=== PATIENT | male | born 1980 | race Caucasian/White ===

== ENCOUNTER 2016-06-15 19:39 | Inpatient (IN) | payer OTHER ==
[~2016-06-15] VITALS: Ht 167.6 cm; Wt 153.7 kg
[2016-06-15 20:50] LABS: HEMATOCRIT 54.7 % (38.0-50.0); MCH 28.2 PG (29.0-34.0); MCHC 30.7 G/DL (30.0-36.0); MCV 91.9 FL (86-99); MEAN PLAT.VOLUME 9.5 uM^3 (9.0-12.4); PLATELET COUNT 288 K/uL (156-360); RBC DIS.WIDTH-CV 16.8 % (11.8-14.6); RBC DIS.WIDTH-SD 53.3 % (39-53); RED BLOOD COUNT 5.95 M/uL (4.00-5.50); WHITE BLOOD COUNT 13.2 K/uL (4.1-10.2)
[2016-06-15 20:58] LABS: CHLORIDE 98 mEq/L (99-109); POTASSIUM 4.4 mEq/L (3.7-5.4); SODIUM 138 mEq/L (136-147)
[2016-06-15 20:59] LABS: GLUCOSE 93 mg/dL (70-99)
[2016-06-15 21:01] LABS: ANION GAP 7 MEQ/L (2-14)
[2016-06-15 21:03] LABS: GFR ESTIMATE (CALCULATED) > 59 mL/min/
[2016-06-15 21:04] LABS: UREA NITROGEN (BUN) 14 mg/dL (9-23)
[2016-06-15 21:11] LABS: TROP-I INTERPRETATION NEGATIVE; TROPONIN-I 0.05 ng/mL (0.0-0.30)
[2016-06-15] MEDS ORDERED: PROAIR HFA8.5 GM IH (21:47)
[2016-06-15] MEDS ORDERED: TYLENOL PM1 CAPLET PO (21:48)
[2016-06-15 23:12] LABS: ADD MIUA? NO; BILIRUBIN NEGATIVE; BLOOD NEGATIVE; COLOR YELLOW ((YELLOW)); GLUCOSE (STRIP) NEGATIVE; KETONES NEGATIVE; LEUKOCYTES NEGATIVE; NITRITE NEGATIVE; PROTEIN (STRIP) NEGATIVE; SPECIFIC GRAVITY 1.014 (1.000-1.030); UCUL ADDED? NO
[2016-06-15 23:55] LABS: BASE EXCESS 11.3 mEq/L (-3 to +3); BICARBONATE 39.6 mEq/L (22-26); CARBOXY HGB 9.6 % (0-5); COMMENTS - BLOOD GASES C+; DEVICE NC; METHEMOGLOBIN 1.2 % (0-1.5); O2 FLOW 5 L/MIN; PCO2 64 mm Hg (35-45); PO2 77 mm Hg (80-100); SITE RR; TOTAL RESP RATE 17 resp/min
[2016-06-16] VITALS (8 sets, daily range): BP systolic 113–157; BP diastolic 55–92
[2016-06-16 07:02] LABS: HEMATOCRIT 55.3 % (38.0-50.0); MCH 29.5 PG (29.0-34.0); MCHC 30.7 G/DL (30.0-36.0); MCV 95.8 FL (86-99); MEAN PLAT.VOLUME 10.4 uM^3 (9.0-12.4); PLATELET COUNT 266 K/uL (156-360); RBC DIS.WIDTH-CV 16.7 % (11.8-14.6); RBC DIS.WIDTH-SD 57.6 % (39-53); RED BLOOD COUNT 5.77 M/uL (4.00-5.50); WHITE BLOOD COUNT 12.1 K/uL (4.1-10.2)
[2016-06-16 07:21] LABS: ANION GAP 7 MEQ/L (2-14); CHLORIDE 95 MEQ/L (99-109); GFR ESTIMATE (CALCULATED) > 59 mL/min/; GLUCOSE 129 mg/dL (70-99); POTASSIUM 5.1 MEQ/L (3.7-5.4); SAMPLE HEMOLYSIS CHECK 0; SAMPLE ICTERIC CHECK 0; SAMPLE LIPEMIA CHECK 0; SODIUM 136 MEQ/L (136-147); UREA NITROGEN (BUN) 12 mg/dL (9-23)
[2016-06-16 07:41] LABS: TROP-I INTERPRETATION NEGATIVE; TROPONIN-I 0.02 ng/mL (0.0-0.30)
[2016-06-16 12:34] LABS: TROP-I INTERPRETATION NEGATIVE; TROPONIN-I 0.01 ng/mL (0.0-0.30)
[2016-06-17 04:58] VITALS: BP 104/56
[2016-06-17 07:03] LABS: HEMATOCRIT 54.9 % (38.0-50.0); MCHC 29.1 G/DL (30.0-36.0); MCV 96.1 FL (86-99); MEAN PLAT.VOLUME 10.1 uM^3 (9.0-12.4); PLATELET COUNT 269 K/uL (156-360); RBC DIS.WIDTH-CV 16.5 % (11.8-14.6); RBC DIS.WIDTH-SD 57.6 % (39-53); RED BLOOD COUNT 5.71 M/uL (4.00-5.50); WHITE BLOOD COUNT 10.3 K/uL (4.1-10.2)
[2016-06-17 07:09] LABS: EOSINOPHIL (%) 0 % (0-5); IMMATURE GRANULOCYTE (%) 0.3 % (0.0-0.7); LYMPHOCYTE COUNT 0.6 K/uL (1.0-2.8); MONOCYTE (%) 5.6 % (3-12); MONOCYTE COUNT 0.6 K/uL (0-0.8); NEUTROPHIL (%) 88.6 % (45-76); NEUTROPHIL COUNT 9.1 K/uL (1.8-6.4)
[2016-06-17 07:28] LABS: ANION GAP 4 MEQ/L (2-14); CHLORIDE 97 MEQ/L (99-109); GFR ESTIMATE (CALCULATED) > 59 mL/min/; GLUCOSE 131 mg/dL (70-99); MAGNESIUM 2.2 mg/dl (1.3-2.7); POTASSIUM 4.7 MEQ/L (3.7-5.4); SAMPLE HEMOLYSIS CHECK 0; SAMPLE ICTERIC CHECK 0; SAMPLE LIPEMIA CHECK 0; SODIUM 138 MEQ/L (136-147); UREA NITROGEN (BUN) 16 mg/dL (9-23)
[2016-06-17 07:31] VITALS: BP 131/74
[2016-06-17 11:23] VITALS: BP 116/76
[2016-06-17 16:00] VITALS: BP 118/55
[2016-06-17 20:00] VITALS: BP 131/65
[2016-06-18] VITALS: BP 147/66
[2016-06-18 03:45] VITALS: BP 128/69
[2016-06-18 07:26] LABS: GFR ESTIMATE (CALCULATED) > 59 mL/min/
[2016-06-18 08:00] VITALS: BP 133/69
[2016-06-18 11:46] VITALS: BP 104/54
[2016-06-18 16:00] VITALS: BP 122/62
[2016-06-19] VITALS: BP 123/56
[2016-06-19 04:00] VITALS: BP 135/77
[2016-06-19 07:39] VITALS: BP 131/67
[2016-06-19 11:31] VITALS: BP 136/71
[2016-06-19 15:19] VITALS: BP 157/72
[2016-06-19] MEDS ORDERED: FUROSEMIDE40 MG PO (17:35)
[2016-06-19] MEDS ORDERED: ADVAIR HFA120 INHALA IH (17:36)
[2016-06-19] MEDS ORDERED: MONTELUKAST SOD10 MG PO (17:36)
[2016-06-19] MEDS ORDERED: PREDNISONE20 MG PO (18:00)
== END 2016-06-19 18:00 | disposition home or self-care (01) | DRG 291 ==
LOC: EME 19:39 → EDOF 23:13 → 5SOUTH 23:13
PROVIDERS: Emergency Medicine; Hospitalist; Internal Medicine
DX: I50.30 Unspecified diastolic (congestive) heart failure (principal); J45.41 Moderate persistent asthma with (acute) exacerbation; J96.22 Acute and chronic respiratory failure with hypercapnia; J96.21 Acute and chronic respiratory failure with hypoxia; R65.11 Systemic inflammatory response syndrome (SIRS) of non-infectious origin with acute organ dysfunction; L03.115 Cellulitis of right lower limb; L03.116 Cellulitis of left lower limb; E66.2 Morbid (severe) obesity with alveolar hypoventilation; Z68.43 Body mass index [BMI] 50.0-59.9, adult; I83.219 Varicose veins of right lower extremity with both ulcer of unspecified site and inflammation; I83.229 Varicose veins of left lower extremity with both ulcer of unspecified site and inflammation; J20.9 Acute bronchitis, unspecified; I27.81 Cor pulmonale (chronic); I89.0 Lymphedema, not elsewhere classified; Z91.19 Patient's noncompliance with other medical treatment and regimen; I87.8 Other specified disorders of veins; F40.240 Claustrophobia; F17.210 Nicotine dependence, cigarettes, uncomplicated
CPT/HCPCS: 36600; 71020; 71275; 80048; 80202; 81003; 82565; 82803; 83735; 83880; 84100; 84484; 85025; 85027; 87040; 93005; 93306; 94640; 94640 76; 94660; 94799; 99202; 99281; 99285; J1644; J1940; J1956; J2930; J3370; J3475; J7040; J7512